=== PATIENT | male | born 1970 | race Caucasian/White ===

== ENCOUNTER → 2017-04-11 | Outpatient (CLI) | payer BC, OTHER ==
[~2017-04-11] MED LIST: COLA100C2; PERC5TAB8
--- NOTE | 2017-04-11 12:13 | REP ---
LEFT FOOT, FOUR VIEWS: HISTORY: Pain. There is no acute fracture or dislocation. The joint spaces are normal in appearance. IMPRESSION: There is no acute fracture or dislocation. Signed by Haroon Cash MD 04/11/2017 12:18 P
== END ==
LOC: M WUC 10:32
PROVIDERS: ATTEND Emergency Medicine
DX: M25.572 Pain in left ankle and joints of left foot (principal)

== ENCOUNTER → 2018-04-04 | Outpatient (CLI) | payer BC, OTHER | LOC: M WUC 14:13 | DX: M54.31 Sciatica, right side (principal); M51.36 Other intervertebral disc degeneration, lumbar region | CPT/HCPCS: 72110 ==

== ENCOUNTER → 2018-09-04 | Outpatient (CLI) | payer BC, OTHER ==
[2018-09-04 17:29] LABS: INR 1.06; PROTHROMBIN TIME 13.9 SECONDS (12.1-14.4)
[2018-09-04 17:30] LABS: PARTIAL THROMBOPLASTIN TIME 34.9 SECONDS (25.4-37.6)
== END ==
LOC: M WUC 15:21
PROVIDERS: ATTEND Physical Medicine & Rehabilitation
DX: Z01.812 Encounter for preprocedural laboratory examination (principal)

== ENCOUNTER → 2018-12-28 | Outpatient (CLI) | payer BC, OTHER ==
[2018-12-28 17:35] LABS: BASO % 0.5 % (0.0-1.0); EOS # 0.1 10^3/uL (0.0-0.50); EOS % 2.1 % (0.0-3.0); HEMATOCRIT 43.8 % (42.0-52.0); HEMOGLOBIN 12.7 g/dl (13.5-17.5); LYMPH # 1.6 10^3/uL (1.5-4.5); LYMPH % 26.2 % (24.0-44.0); MEAN CORPUSCULAR HEMOGLOBIN 24.5 pg (27.0-33.0); MEAN CORPUSCULAR VOLUME 84.4 fl (80.0-96.0); MONO # 0.5 10^3/uL (0.0-0.8); MONO % 7.7 % (0.0-5.0); NEUTROPHILS # 3.9 10^3/uL (1.8-7.7); NEUTROPHILS % 63.3 % (36.0-66.0); PLATELET COUNT, AUTOMATED 156 10^3/uL (150-450); RED BLOOD COUNT 5.19 10^6/uL (4.30-6.10); WHITE BLOOD COUNT 6.1 10^3/uL (4.0-10.0)
[2018-12-28 17:55] LABS: ALBUMIN 3.9 GM/DL (3.2-5.2); ALT/SGPT 24 U/L (12-78); BILIRUBIN,TOTAL 0.5 MG/DL (0.2-1.0); BLOOD UREA NITROGEN 21 MG/DL (7-18); CALCIUM LEVEL 9.2 MG/DL (8.5-10.1); CARBON DIOXIDE LEVEL 30 MEQ/L (21-32); CHLORIDE LEVEL 108 MEQ/L (98-107); CHOLESTEROL LEVEL 177 MG/DL (<200); CHOLESTEROL RISK RATIO 2.809 (<5); CREATININE FOR GFR 1.08 MG/DL (0.70-1.30); GLOMERULAR FILTRATION RATE > 60.0 (>56); GLUCOSE, FASTING 82 MG/DL (70-100); HDL CHOLESTEROL 63 MG/DL (>40); LDL CHOLESTEROL 97 MG/DL (<100); NON-HDL-C 114 MG/DL; POTASSIUM SERUM 4.8 MEQ/L (3.5-5.1); SODIUM LEVEL 143 MEQ/L (136-145); TOTAL PROTEIN 7.2 GM/DL (6.4-8.2); TRIGLYCERIDES LEVEL 85 MG/DL (<150)
== END ==
LOC: M WUC 11:19
PROVIDERS: ATTEND Physician Assistant Medical
DX: E55.9 Vitamin D deficiency, unspecified (principal); I10 Essential (primary) hypertension

== ENCOUNTER 2019-01-13 16:18 | Emergency (ER) | payer BC, OTHER ==
[~2019-01-13] VITALS: Ht 167.6 cm; Wt 142.0 kg
[2019-01-13] MEDS ORDERED: GABA800T4 PO (16:34)
[2019-01-13] MEDS ORDERED: LOSA100T50 PO (16:34)
[2019-01-13] MEDS ORDERED: SKEL800T97 PO (16:34)
[2019-01-13] MEDS ORDERED: LEVOTAB10 PO (16:34)
[2019-01-13] MEDS ORDERED: IBUP80TA PO (16:34)
[2019-01-13] MEDS ORDERED: LIDOCAINE 1% SDV 5 ML VIAL DILUENT ONE (19:30)
[2019-01-13] MEDS ORDERED: cefTRIAXone SOD 1 GM VIAL (J0696) IM ONE (19:30)
[2019-01-13] MEDS ORDERED: AUGMENTIN 875 MG TAB PO ONE (19:30)
--- NOTE | 2019-01-13 19:32 | REPVR ---
EXAM: US Duplex Right Lower Extremity Veins, Limited EXAM DATE/TIME: 01/13/2019 6:12 PM CLINICAL HISTORY: 49 years old, male; Pain; Leg, lower; Right; Prior surgery; Surgery date: 6+ months; Surgery type: Quad repair 2003; Additional info: Lower leg pain, swelling TECHNIQUE: Imaging protocol: Real-time Duplex ultrasound of the Right Lower Extremity with 2-D barron scale, color Doppler flow and spectral waveform analysis with image documentation. Limited exam was focused on the right lower extremity veins. COMPARISON: No relevant prior studies available. FINDINGS: Right deep veins: The common femoral, femoral, proximal profunda femoral and popliteal veins are patent without thrombus. Normal compressibility and/or augmentation response. Flow is visualized within the posterior tibial vein. Evaluation of the posterior tibial vein is limited. Right superficial veins: Saphenofemoral junction is patent without thrombus. Soft tissues: Unremarkable. IMPRESSION: No evidence of deep vein thrombosis from the right common femoral to the popliteal veins. Electronically signed by: Francis Monroe On 01/13/2019 19:31:35 PM
[2019-01-13 19:42] LABS: BASO % 0.1 % (0.0-1.0); EOS # 0.1 10^3/uL (0.0-0.50); EOS % 1.7 % (0.0-3.0); HEMATOCRIT 40.3 % (42.0-52.0); HEMOGLOBIN 11.8 g/dl (13.5-17.5); LYMPH # 1.4 10^3/uL (1.5-4.5); LYMPH % 18.5 % (24.0-44.0); MEAN CORPUSCULAR HEMOGLOBIN 24.4 pg (27.0-33.0); MEAN CORPUSCULAR HGB CONC 29.3 g/dl (32.0-36.5); MEAN CORPUSCULAR VOLUME 83.4 fl (80.0-96.0); MONO # 0.9 10^3/uL (0.0-0.8); MONO % 11.4 % (0.0-5.0); NEUTROPHILS # 5.1 10^3/uL (1.8-7.7); NEUTROPHILS % 67.8 % (36.0-66.0); PLATELET COUNT, AUTOMATED 135 10^3/uL (150-450); RED BLOOD COUNT 4.83 10^6/uL (4.30-6.10); WHITE BLOOD COUNT 7.5 10^3/uL (4.0-10.0)
[2019-01-13 20:17] LABS: ERYTHROCYTE SEDIMENTATION RATE 46 mm/hr (0-20)
[2019-01-13] MEDS ORDERED: AUGM875T28 PO (21:07)
[2019-01-13 21:10] VITALS: BP 142/88
== END 2019-01-13 21:19 | disposition home or self-care (01) ==
LOC: M ED 16:18
DX: L03.115 Cellulitis of right lower limb (principal); R51 Headache; Z98.84 Bariatric surgery status; Z79.899 Other long term (current) drug therapy
CPT/HCPCS: 36415; 80047; 85025; 85652; 86140; 87040; 93971; 96372; 99283; J0696

== ENCOUNTER → 2019-02-01 | Outpatient (CLI) | payer BC, OTHER ==
[~2019-02-01] MED LIST changes: +AUGM875T28 PO; +GABA800T4 PO; +IBUP80TA PO; +LEVOTAB10 PO; +LOSA100T50 PO; +SKEL800T97 PO
--- NOTE | 2019-02-01 15:14 | REP ---
Right lower extremity Duplex Doppler venous ultrasound: Real time compression and duplex Doppler interrogation of the right lower extremity deep venous system is performed. The right common femoral, superficial femoral and popliteal veins are fully compressible with transducer pressure and demonstrate normal spontaneous and phasic flow, without evidence of deep venous thrombosis. Impression: No evidence of deep venous thrombosis of the right lower extremity femoral popliteal venous system. Electronically Signed by Carlos Jeronimo MD 02/01/2019 12:30 P
== END ==
LOC: M RAD 11:54
PROVIDERS: ATTEND Physician Assistant Medical
DX: L03.115 Cellulitis of right lower limb (principal)

== ENCOUNTER → 2019-12-19 | Outpatient (CLI) | payer BC, OTHER ==
[2019-12-19 14:08] LABS: PLATELET COUNT, AUTOMATED 159 10^3/uL (150-450)
[2019-12-19 14:18] LABS: INR 1.08; PROTHROMBIN TIME 13.7 SECONDS (11.8-14.0)
[2019-12-19 14:19] LABS: PARTIAL THROMBOPLASTIN TIME 34.7 SECONDS (25.0-38.4)
[2019-12-19 14:54] LABS: COLLAGEN ADP 100 SECONDS (56-103); COLLAGEN EPINEPHRINE > 268 SECONDS (74-162)
== END ==
LOC: M WUC 11:51
PROVIDERS: ATTEND Physician Assistant
DX: Z01.812 Encounter for preprocedural laboratory examination (principal); M47.26 Other spondylosis with radiculopathy, lumbar region; M48.04 Spinal stenosis, thoracic region

== ENCOUNTER → 2019-12-26 | Outpatient (CLI) | payer BC, OTHER | LOC: M LABSMTC 11:46 | PROVIDERS: ATTEND Physical Medicine & Rehabilitation | DX: Z03.89 Encounter for observation for other suspected diseases and conditions ruled out (principal); Z11.59 Encounter for screening for other viral diseases ==

== ENCOUNTER → 2019-12-30 | Outpatient (CLI) | payer BC, OTHER ==
[2019-12-30 11:56] LABS: COLLAGEN ADP 94 SECONDS (56-103); COLLAGEN EPINEPHRINE > 300 SECONDS (74-162)
== END ==
LOC: M WUC 09:53
PROVIDERS: ATTEND Physician Assistant
DX: M47.26 Other spondylosis with radiculopathy, lumbar region (principal)

== ENCOUNTER → 2020-04-20 | Outpatient (CLI) | payer SELFPAY | LOC: M LABSMTC 13:28 | PROVIDERS: ATTEND Pediatrics | DX: Z20.828 Contact with and (suspected) exposure to other viral communicable diseases (principal) ==

== ENCOUNTER → 2020-07-01 | Outpatient (CLI) | payer BC, OTHER ==
--- NOTE | 2020-07-01 14:44 | REP ---
INDICATION: PAIN COMPARISON: None. TECHNIQUE: AP and lateral views left ankle. FINDINGS: The osseous structures and joint spaces are intact and normal. There is no evidence for acute fracture or dislocation. Surrounding soft tissues are unremarkable. No subcutaneous emphysema or radiodense foreign body. IMPRESSION: Normal age-appropriate left ankle radiographs. <Electronically signed by Erik Diaz > 07/01/20 [id number]
--- NOTE | 2020-07-01 14:44 | REP ---
INDICATION: PAIN COMPARISON: None. TECHNIQUE: AP and lateral views of the left foot. FINDINGS: The osseous structures and joint spaces are intact and normal. There is no evidence for acute fracture or dislocation. Surrounding soft tissues are unremarkable. No subcutaneous emphysema or radiodense foreign body. IMPRESSION: Normal age-appropriate left foot radiographs. <Electronically signed by Erik Diaz > 07/01/20 [id number]
== END ==
LOC: M WUC 13:39
PROVIDERS: ATTEND Physician Assistant Medical
DX: M25.572 Pain in left ankle and joints of left foot (principal)

== ENCOUNTER → 2021-02-20 | Outpatient (CLI) | payer BC, OTHER | LOC: M LABSMTC 09:31 | PROVIDERS: ATTEND Pediatrics | DX: Z20.822 Contact with and (suspected) exposure to COVID-19 (principal) | CPT/HCPCS: C9803; U0003 ==

== ENCOUNTER 2021-02-22 18:12 | Outpatient (CLI) | payer BC, OTHER ==
[~2021-02-22] VITALS: Ht 167.6 cm; Wt 147.6 kg
[~2021-02-22 18:12] MED LIST changes: +ALBUTEROL 90 MCG/ACT 8GM HFA INHALER INH PRN; +ALBUTEROL SULFATE 2.5 MG/0.5 ML INH NEB SOLN INH PRN; +EPINEPHrine INJ 1 MG/ML 1ML AMP IM PRN; +NS 1,000 ML IV SCH; +diphenhydrAMINE 50MG/ML VIAL (J1200) IV PRN; +methylPREDNISolone 125MG 2ML VIAL IV PRN
[2021-02-22 20:00] VITALS: BP 152/70
[2021-02-22] MEDS ORDERED: CASIRIVIMAB/IMDEVIMAB 1,200 MG in NS 250 ML IV ONE (20:00)
[2021-02-22 20:35] VITALS: BP 180/85
[2021-02-22 21:00] VITALS: BP 138/60
[2021-02-22 21:49] VITALS: BP 110/64
== END 2021-02-22 22:10 ==
LOC: M OPCLI4 18:12 → M 4MAIN 18:26 → M OPCLI4 22:10
PROVIDERS: ATTEND Family Medicine
DX: U07.1 COVID-19 (principal)

== ENCOUNTER → 2021-03-26 | Outpatient (CLI) | payer BC, OTHER ==
[~2021-03-26] MED LIST changes: -ALBUTEROL 90 MCG/ACT 8GM HFA INHALER INH PRN; -ALBUTEROL SULFATE 2.5 MG/0.5 ML INH NEB SOLN INH PRN; -EPINEPHrine INJ 1 MG/ML 1ML AMP IM PRN; -NS 1,000 ML IV SCH; -diphenhydrAMINE 50MG/ML VIAL (J1200) IV PRN; -methylPREDNISolone 125MG 2ML VIAL IV PRN
--- NOTE | 2021-03-26 13:23 | REP ---
INDICATION: COUGH, SOB POST COVID. COMPARISON: None. TECHNIQUE: PA and lateral no sign report FINDINGS: The superior mediastinal structures are midline. The cardiac silhouette is unremarkable in size, shape, and position. The diaphragmatic surfaces of the lungs are regular, and the costophrenic angles are clear. The pulmonary medina are clear. The imaged osseous structures are intact. IMPRESSION: There is no acute cardiopulmonary disease. <Electronically signed by Geo Nuñez > 03/26/21 [id number]
== END ==
LOC: M WUC 13:06
PROVIDERS: ATTEND Nurse Practitioner Family
DX: R05.9 Cough, unspecified (principal)

== ENCOUNTER → 2021-05-24 | Outpatient (CLI) | payer BC, OTHER ==
[~2021-05-24] MED LIST changes: +LOSA100T45 PO; -LOSA100T50 PO
== END ==
LOC: M RAD 13:09
PROVIDERS: ATTEND Physical Medicine & Rehabilitation
DX: M47.26 Other spondylosis with radiculopathy, lumbar region (principal); M51.16 Intervertebral disc disorders with radiculopathy, lumbar region; M48.061 Spinal stenosis, lumbar region without neurogenic claudication

== ENCOUNTER → 2021-07-21 | Outpatient (CLI) | payer BC, OTHER | LOC: M RAD 07:02 | PROVIDERS: ATTEND Physician Assistant | DX: M79.672 Pain in left foot (principal); R60.0 Localized edema; M94.8X7 Other specified disorders of cartilage, ankle and foot ==

== ENCOUNTER → 2021-07-21 | Outpatient (CLI) | payer BC, OTHER | LOC: M WUC 08:29 | PROVIDERS: ATTEND Physician Assistant | DX: M79.672 Pain in left foot (principal) ==

== ENCOUNTER → 2021-08-04 | Outpatient (CLI) | payer OTHER, BC ==
[2021-08-04 15:18] LABS: INR 0.95; PROTHROMBIN TIME 13.1 SECONDS (12.7-14.5)
[2021-08-04 15:19] LABS: PARTIAL THROMBOPLASTIN TIME 32.9 SECONDS (25.9-37.0)
[2021-08-04 15:33] LABS: COLLAGEN EPINEPHRINE 194 SECONDS (74-162)
[2021-08-04 16:05] LABS: COLLAGEN ADP 107 SECONDS (56-103)
== END ==
LOC: M WUC 14:11
PROVIDERS: ATTEND Physical Medicine & Rehabilitation
DX: M51.26 Other intervertebral disc displacement, lumbar region (principal)

== ENCOUNTER → 2021-08-11 | Outpatient (CLI) | payer OTHER, BC ==
[2021-08-11 13:19] LABS: PLATELET COUNT, AUTOMATED 143 10^3/uL (150-450)
[2021-08-11 13:30] LABS: COLLAGEN EPINEPHRINE 159 SECONDS (74-162)
== END ==
LOC: M WUC 12:10
PROVIDERS: ATTEND Physical Medicine & Rehabilitation
DX: Z01.812 Encounter for preprocedural laboratory examination (principal)

== ENCOUNTER → 2021-09-07 | Outpatient (CLI) | payer BC, OTHER | LOC: M RAD 10:42 | PROVIDERS: ATTEND Nurse Practitioner Family | DX: M79.672 Pain in left foot (principal) ==

== ENCOUNTER → 2022-03-11 | Outpatient (CLI) | payer OTHER, BC ==
[2022-03-11 09:21] LABS: HEMATOCRIT 48.7 % (42.0-52.0); HEMOGLOBIN 15.3 g/dl (13.5-17.5); MEAN CORPUSCULAR HEMOGLOBIN 27.9 pg (27.0-33.0); MEAN CORPUSCULAR HGB CONC 31.4 g/dl (32.0-36.5); MEAN CORPUSCULAR VOLUME 88.9 fl (80.0-96.0); PLATELET COUNT, AUTOMATED 159 10^3/uL (150-450); RED BLOOD COUNT 5.48 10^6/uL (4.30-6.10); WHITE BLOOD COUNT 6.9 10^3/uL (4.0-10.0)
[2022-03-11 09:46] LABS: ALBUMIN 3.8 GM/DL (3.2-5.2); ALT/SGPT 56 U/L (12-78); BILIRUBIN,TOTAL 0.6 MG/DL (0.2-1.0); BLOOD UREA NITROGEN 17 MG/DL (7-18); CALCIUM LEVEL 9.2 MG/DL (8.5-10.1); CARBON DIOXIDE LEVEL 34 MEQ/L (21-32); CHLORIDE LEVEL 104 MEQ/L (98-107); CREATININE FOR GFR 1.05 MG/DL (0.70-1.30); GLOMERULAR FILTRATION RATE > 60.0 (>56); GLUCOSE, FASTING 105 MG/DL (70-100); POTASSIUM SERUM 4.7 MEQ/L (3.5-5.1); SODIUM LEVEL 141 MEQ/L (136-145); TOTAL PROTEIN 7.2 GM/DL (6.4-8.2)
== END ==
LOC: M EKG 08:33
PROVIDERS: ATTEND Orthopaedic Surgery
DX: G56.03 Carpal tunnel syndrome, bilateral upper limbs (principal); G56.23 Lesion of ulnar nerve, bilateral upper limbs; I15.9 Secondary hypertension, unspecified

== ENCOUNTER → 2022-05-06 | Outpatient (CLI) | payer OTHER, BC ==
[2022-05-06 12:39] LABS: BASO % 0.4 % (0.0-1.0); EOS # 0.2 10^3/uL (0.0-0.5); EOS % 2.1 % (0.0-3.0); HEMATOCRIT 48.7 % (42.0-52.0); HEMOGLOBIN 15.2 g/dl (13.5-17.5); LYMPH # 2.1 10^3/uL (1.5-5.0); LYMPH % 26.8 % (24.0-44.0); MEAN CORPUSCULAR HGB CONC 31.2 g/dl (32.0-36.5); MEAN CORPUSCULAR VOLUME 89.7 fl (80.0-96.0); MONO # 0.6 10^3/uL (0.0-0.8); NEUTROPHILS # 4.8 10^3/uL (1.5-8.5); NEUTROPHILS % 62.4 % (36.0-66.0); PLATELET COUNT, AUTOMATED 171 10^3/uL (150-450); RED BLOOD COUNT 5.43 10^6/uL (4.30-6.10); WHITE BLOOD COUNT 7.7 10^3/uL (4.0-10.0)
[2022-05-06 13:30] LABS: BLOOD UREA NITROGEN 18 MG/DL (7-18); CALCIUM LEVEL 9.2 MG/DL (8.5-10.1); CARBON DIOXIDE LEVEL 30 MEQ/L (21-32); CHLORIDE LEVEL 103 MEQ/L (98-107); GLOMERULAR FILTRATION RATE > 60.0 (>56); GLUCOSE, FASTING 121 MG/DL (70-100); POTASSIUM SERUM 4.3 MEQ/L (3.5-5.1); SODIUM LEVEL 139 MEQ/L (136-145)
== END ==
LOC: M WUC 09:23
PROVIDERS: ATTEND Orthopaedic Surgery
DX: I15.9 Secondary hypertension, unspecified (principal); G56.03 Carpal tunnel syndrome, bilateral upper limbs; G56.23 Lesion of ulnar nerve, bilateral upper limbs

== ENCOUNTER → 2022-08-05 | Outpatient (REF) | payer OTHER ==
[2022-08-05 16:40] LABS: HEMATOCRIT 49.8 % (42.0-52.0); HEMOGLOBIN 15.4 g/dl (13.5-17.5); MEAN CORPUSCULAR HEMOGLOBIN 28.3 pg (27.0-33.0); MEAN CORPUSCULAR HGB CONC 30.9 g/dl (32.0-36.5); MEAN CORPUSCULAR VOLUME 91.5 fl (80.0-96.0); PLATELET COUNT, AUTOMATED 147 10^3/uL (150-450); RED BLOOD COUNT 5.44 10^6/uL (4.30-6.10); WHITE BLOOD COUNT 8.7 10^3/uL (4.0-10.0)
[2022-08-05 17:22] LABS: ALBUMIN 3.8 G/DL (3.2-5.2); ALKALINE PHOSPHATASE 129 U/L (46-116); ALT/SGPT 55 U/L (7.0-40); AST/SGOT 26 U/L (<34); BILIRUBIN,TOTAL 0.8 MG/DL (0.3-1.2); BLOOD UREA NITROGEN 17 MG/DL (9-23); CALCIUM LEVEL 9.1 MG/DL (8.5-10.1); CARBON DIOXIDE LEVEL 31 MMOL/L (20-31); CHLORIDE LEVEL 101 MMOL/L (98-107); CREATININE FOR GFR 1.08 MG/DL (0.70-1.30); GLOMERULAR FILTRATION RATE > 60.0 (>56); GLUCOSE, FASTING 152 MG/DL (60-100); POTASSIUM SERUM 3.9 MMOL/L (3.5-5.1); SODIUM LEVEL 141 MMOL/L (136-145); TOTAL PROTEIN 6.9 G/DL (5.7-8.2)
== END ==
LOC: M LABWUC 16:04 → M LAB REF 16:04
PROVIDERS: ATTEND Orthopaedic Surgery
DX: G56.03 Carpal tunnel syndrome, bilateral upper limbs (principal); G56.23 Lesion of ulnar nerve, bilateral upper limbs; I15.9 Secondary hypertension, unspecified

== ENCOUNTER → 2022-11-29 | Outpatient (CLI) | payer OTHER ==
[~2022-11-29] MED LIST changes: -LOSA100T45 PO; +LOSA100T46 PO
[2022-11-29 09:46] LABS: BASO # 0.1 10^3/uL (0.0-0.2); BASO % 0.7 % (0.0-1.0); EOS # 0.2 10^3/uL (0.0-0.5); HEMATOCRIT 50.4 % (42.0-52.0); HEMOGLOBIN 16.4 g/dl (13.5-17.5); LYMPH # 1.8 10^3/uL (1.5-5.0); LYMPH % 26.7 % (24.0-44.0); MEAN CORPUSCULAR HEMOGLOBIN 29.8 pg (27.0-33.0); MEAN CORPUSCULAR HGB CONC 32.5 g/dl (32.0-36.5); MEAN CORPUSCULAR VOLUME 91.6 fl (80.0-96.0); MONO # 0.7 10^3/uL (0.0-0.8); NEUTROPHILS % 59.3 % (36.0-66.0); PLATELET COUNT, AUTOMATED 135 10^3/uL (150-450); WHITE BLOOD COUNT 6.8 10^3/uL (4.0-10.0)
[2022-11-29 09:52] LABS: ERYTHROCYTE SEDIMENTATION RATE 28 mm/hr (0-20)
[2022-11-29 10:30] LABS: URIC ACID 5.7 MG/DL (3.7-9.2)
[2022-11-29 10:33] LABS: C REACTIVE PROTEIN QUANTITATIV 2.5 MG/DL (<1.0)
[2022-11-29 10:34] LABS: RHEUMATOID FACTOR QUANT 6.5 IU/ML (<14)
[2022-11-30 13:09] LABS: ANTINUCLEAR ANTIBODIES DIRECT Negative (Negative)
== END ==
LOC: M WUC 08:02
PROVIDERS: ATTEND Physician Assistant
DX: M79.672 Pain in left foot (principal)

== ENCOUNTER → 2022-12-07 | Outpatient (CLI) | payer OTHER, SELFPAY | LOC: M RAD 11:46 | PROVIDERS: ATTEND Physician Assistant | DX: M25.475 Effusion, left foot (principal) ==

== ENCOUNTER → 2024-05-07 | Outpatient (CLI) | payer OTHER ==
[~2024-05-07] MED LIST changes: +GABA-1635 PO; -GABA800T4 PO
[2024-05-07 17:44] LABS: BASO % 0.3 % (0.0-1.0); EOS # 0.2 10^3/uL (0.0-0.5); EOS % 1.8 % (0.0-3.0); HEMATOCRIT 56.5 % (42.0-52.0); HEMOGLOBIN 18.5 g/dl (13.5-17.5); LYMPH % 21.8 % (24.0-44.0); MEAN CORPUSCULAR HEMOGLOBIN 31.2 pg (27.0-33.0); MEAN CORPUSCULAR HGB CONC 32.7 g/dl (32.0-36.5); MEAN CORPUSCULAR VOLUME 95.3 fl (80.0-96.0); MONO # 0.7 10^3/uL (0.0-0.8); MONO % 7.3 % (2.0-8.0); NEUTROPHILS # 6.1 10^3/uL (1.5-8.5); NEUTROPHILS % 68.5 % (36.0-66.0); PLATELET COUNT, AUTOMATED 152 10^3/uL (150-450); RED BLOOD COUNT 5.93 10^6/uL (4.30-6.10); WHITE BLOOD COUNT 8.9 10^3/uL (4.0-10.0)
[2024-05-07 17:45] LABS: ALBUMIN 3.9 G/DL (3.2-5.2); ALKALINE PHOSPHATASE 125 U/L (40-129); ALT/SGPT 42 U/L (7.0-40); AST/SGOT 20 U/L (<34); BILIRUBIN,TOTAL 1.1 MG/DL (0.3-1.2); BLOOD UREA NITROGEN 22 MG/DL (9-23); CALCIUM LEVEL 9.8 MG/DL (8.5-10.1); CARBON DIOXIDE LEVEL 35 MMOL/L (20-31); CHLORIDE LEVEL 103 MMOL/L (98-107); CHOLESTEROL LEVEL 208 MG/DL (<200); CHOLESTEROL RISK RATIO 3.38 (<5); CREATININE FOR GFR 1.07 MG/DL (0.70-1.30); GLOMERULAR FILTRATION RATE > 60.0 (>56); GLUCOSE, FASTING 106 MG/DL (60-100); HDL CHOLESTEROL 61.4 MG/DL (>40); LDL CHOLESTEROL 125.8 MG/DL (<100); NON-HDL-C 146.6 MG/DL; POTASSIUM SERUM 4.4 MMOL/L (3.5-5.1); SODIUM LEVEL 142 MMOL/L (136-145); TOTAL PROTEIN 7.7 G/DL (5.7-8.2); TRIGLYCERIDES LEVEL 104 MG/DL (<150)
[2024-05-07 17:47] LABS: THYROID STIMULATING HORMONE 0.669 uIU/ML (0.55-4.78)
[2024-05-07 17:51] LABS: URIC ACID 7.4 MG/DL (3.7-9.2)
[2024-05-07 17:57] LABS: HEMOGLOBIN A1c 5.5 % (4.0-6.0)
== END ==
LOC: M WUC 12:11
PROVIDERS: ATTEND Nurse Practitioner Family
DX: I10 Essential (primary) hypertension (principal); E78.2 Mixed hyperlipidemia; E66.01 Morbid (severe) obesity due to excess calories

== ENCOUNTER → 2024-05-22 | Outpatient (CLI) | payer OTHER ==
[2024-05-22 17:01] LABS: BASO % 0.5 % (0.0-1.0); EOS # 0.2 10^3/uL (0.0-0.5); HEMATOCRIT 54.2 % (42.0-52.0); HEMOGLOBIN 17.8 g/dl (13.5-17.5); LYMPH # 1.7 10^3/uL (1.5-5.0); LYMPH % 21.5 % (24.0-44.0); MEAN CORPUSCULAR HEMOGLOBIN 30.6 pg (27.0-33.0); MEAN CORPUSCULAR HGB CONC 32.8 g/dl (32.0-36.5); MEAN CORPUSCULAR VOLUME 93.1 fl (80.0-96.0); MONO # 0.4 10^3/uL (0.0-0.8); MONO % 5.7 % (2.0-8.0); NEUTROPHILS # 5.4 10^3/uL (1.5-8.5); PLATELET COUNT, AUTOMATED 158 10^3/uL (150-450); RED BLOOD COUNT 5.82 10^6/uL (4.30-6.10); WHITE BLOOD COUNT 7.7 10^3/uL (4.0-10.0)
[2024-05-22 17:02] LABS: IRON (FE) 93 UG/DL (65-175); PERCENT SATURATION 25.7 % (19.7-50.0); TOTAL IRON BINDING CAPACITY 362 UG/DL (250-425)
[2024-05-22 17:03] LABS: ALBUMIN 3.9 G/DL (3.2-5.2); ALKALINE PHOSPHATASE 130 U/L (40-129); ALT/SGPT 39 U/L (7.0-40); AST/SGOT 14 U/L (<34); BILIRUBIN,TOTAL 0.9 MG/DL (0.3-1.2); BLOOD UREA NITROGEN 17 MG/DL (9-23); CALCIUM LEVEL 9.8 MG/DL (8.5-10.1); CARBON DIOXIDE LEVEL 31 MMOL/L (20-31); CHLORIDE LEVEL 102 MMOL/L (98-107); CREATININE FOR GFR 0.99 MG/DL (0.70-1.30); GLOMERULAR FILTRATION RATE > 60.0 (>56); GLUCOSE, FASTING 156 MG/DL (60-100); POTASSIUM SERUM 3.9 MMOL/L (3.5-5.1); SODIUM LEVEL 140 MMOL/L (136-145); TOTAL PROTEIN 7.5 G/DL (5.7-8.2)
[2024-05-22 17:05] LABS: FERRITIN 28.9 NG/ML (10.5-307.3)
[2024-05-22 17:38] LABS: AMORPHOUS SEDIMENT SMALL (NEGATIVE); APPEARANCE, URINE TURBID (CLEAR); BACTERIA, URINE AUTO NEGATIVE (NEGATIVE); BILIRUBIN, URINE AUTO NEGATIVE (NEGATIVE); BLOOD, URINE BLOOD NEGATIVE (NEGATIVE); COLOR, URINE AMBER (YELLOW); GLUCOSE, URINE (UA) AUTO NEGATIVE (NEGATIVE); KETONE, URINE AUTO NEGATIVE (NEGATIVE); LEUKOCYTE ESTERASE, URINE AUTO NEGATIVE (NEGATIVE); MUCUS, URINE SMALL (NEGATIVE); NITRITE, URINE AUTO NEGATIVE (NEGATIVE); PROTEIN, URINE AUTO 1+ mg/dL (NEGATIVE); RBC, URINE AUTO 1 /HPF (0-3); SPECIFIC GRAVITY URINE AUTO 1.024 (1.002-1.035); SQUAMOUS EPITHELIAL CELL UR AU 0 /HPF (0-6); WBC, URINE AUTO 0 /HPF (0-3)
[2024-05-22 17:44] LABS: ERYTHROCYTE SEDIMENTATION RATE 28 mm/hr (0-20)
== END ==
LOC: M WUC 10:40
PROVIDERS: ATTEND Nurse Practitioner Family
DX: D45 Polycythemia vera (principal)

== ENCOUNTER 2024-08-12 08:07 | Outpatient (RCR) | payer OTHER | END 2024-08-23 | LOC: M PT 08:07 | PROVIDERS: ATTEND Physician Assistant | DX: I89.0 Lymphedema, not elsewhere classified (principal) ==

== ENCOUNTER → 2024-08-26 | Outpatient (CLI) | payer OTHER ==
[2024-08-26 11:34] LABS: BASO % 0.5 % (0.0-1.0); EOS # 0.1 10^3/uL (0.0-0.5); EOS % 1.6 % (0.0-3.0); HEMATOCRIT 55.2 % (42.0-52.0); LYMPH # 1.5 10^3/uL (1.5-5.0); LYMPH % 18.6 % (24.0-44.0); MEAN CORPUSCULAR HEMOGLOBIN 30.2 pg (27.0-33.0); MEAN CORPUSCULAR HGB CONC 32.6 g/dl (32.0-36.5); MEAN CORPUSCULAR VOLUME 92.5 fl (80.0-96.0); MONO # 0.5 10^3/uL (0.0-0.8); MONO % 6.4 % (2.0-8.0); NEUTROPHILS # 5.9 10^3/uL (1.5-8.5); NEUTROPHILS % 72.5 % (36.0-66.0); PLATELET COUNT, AUTOMATED 144 10^3/uL (150-450); RED BLOOD COUNT 5.97 10^6/uL (4.30-6.10); WHITE BLOOD COUNT 8.1 10^3/uL (4.0-10.0)
[2024-08-26 11:41] LABS: ERYTHROCYTE SEDIMENTATION RATE 18 mm/hr (0-20)
[2024-08-26 12:03] LABS: LDH LACTATE DEHYDROGENASE 179 U/L (120-246)
[2024-08-26 12:04] LABS: C REACTIVE PROTEIN QUANTITATIV 1.47 MG/DL (<1.0)
[2024-08-26 12:05] LABS: ALBUMIN 3.8 G/DL (3.2-5.2); ALKALINE PHOSPHATASE 123 U/L (40-129); ALT/SGPT 34 U/L (7.0-40); AST/SGOT 15 U/L (<34); BILIRUBIN,TOTAL 0.8 MG/DL (0.3-1.2); BLOOD UREA NITROGEN 16 MG/DL (9-23); CALCIUM LEVEL 9.2 MG/DL (8.5-10.1); CARBON DIOXIDE LEVEL 34 MMOL/L (20-31); CHLORIDE LEVEL 102 MMOL/L (98-107); CREATININE FOR GFR 1.04 MG/DL (0.70-1.30); GLOMERULAR FILTRATION RATE > 60.0 (>56); GLUCOSE, FASTING 103 MG/DL (60-100); POTASSIUM SERUM 4.6 MMOL/L (3.5-5.1); SODIUM LEVEL 142 MMOL/L (136-145); TOTAL PROTEIN 7.2 G/DL (5.7-8.2)
[2024-08-26 12:07] LABS: FREE T4 1.12 NG/DL (0.89-1.76); THYROID STIMULATING HORMONE 1.158 uIU/ML (0.55-4.78)
[2024-08-28 13:47] LABS: EBV AB TO NUCLEAR ANTIGEN > 600.00 U/mL (<18.00); EBV VIRAL CAPSID AG IGG > 750.00 U/mL (<18.00); EBV VIRAL CAPSID AG IGM < 36.00 U/mL (<36.00)
[2024-08-29 19:17] LABS: LYME TOTAL ANTIBODY CIA <= 0.90 Index (<=0.90)
== END ==
LOC: M LAB 10:47
PROVIDERS: ATTEND Nurse Practitioner Family
DX: R59.0 Localized enlarged lymph nodes (principal); D69.6 Thrombocytopenia, unspecified

== ENCOUNTER 2024-09-20 12:00 | Outpatient (RCR) | payer OTHER | END 2024-09-23 | LOC: M PT 12:00 | PROVIDERS: ATTEND Physician Assistant | DX: I89.0 Lymphedema, not elsewhere classified (principal) ==

== ENCOUNTER 2024-09-30 10:35 | Outpatient (RCR) | payer OTHER ==
[2024-10-10] MEDS ORDERED: AMLO1TAB25 PO (17:11)
[2024-10-10] MEDS ORDERED: FURO20TA2 PO (17:11)
[2024-10-10] MEDS ORDERED: CELE1CAP99 PO (17:11)
[2024-10-10] MEDS ORDERED: LOSA100T46 PO (17:11)
[2024-10-10] MEDS ORDERED: KETO2CR TOP (17:24)
[2024-10-10] MEDS ORDERED: META-10 PO (17:24)
[2024-10-10] MEDS ORDERED: ALB2.5NEB INH (17:24)
[2024-10-10] MEDS ORDERED: THERTAB52 PO (17:24)
[2024-10-10] MEDS ORDERED: AZEL1SPR3 NARES (17:24)
[2024-10-10] MEDS ORDERED: FLON1SPR NARES (17:24)
[2024-10-14] MEDS ORDERED: LOSA-528 PO (11:40)
[2024-10-14] MEDS ORDERED: POTA-149 PO (11:40)
[2024-10-14] MEDS ORDERED: CEFD300CAP PO (11:40)
[2024-10-14] MEDS ORDERED: TORS20TA2 PO (11:40)
[2024-10-14] MEDS ORDERED: ALB2.5NEB INH (15:07)
== END 2024-10-23 ==
LOC: M PT 10:35
PROVIDERS: ATTEND Physician Assistant
DX: I89.0 Lymphedema, not elsewhere classified (principal)

== ENCOUNTER 2024-10-10 15:37 | Inpatient (IN) | payer OTHER ==
[~2024-10-10] VITALS: Ht 165.1 cm; Wt 161.0 kg
[2024-10-10 16:23] LABS: VENOUS BASE EXCESS 2.8 (-2.0-2.0); VENOUS HCO3 29.9 MMOL/L (23.0-27.0); VENOUS O2 SATURATION 76.9 % (60.0-80.0); VENOUS PARTIAL PRESSURE CO2 54.3 mmHg (38.0-50.0); VENOUS PARTIAL PRESSURE O2 42.9 mmHg (30.0-50.0); VENOUS PH 7.359 UNITS (7.330-7.430); VENOUS STANDARD HCO3 26.2 MMOL/L; VENOUS TOTAL CO2 31.6 MMOL/L (24.0-28.0)
[2024-10-10 16:37] LABS: BASO # 0.1 10^3/uL (0.0-0.2); BASO % 0.4 % (0.0-1.0); EOS # 0.1 10^3/uL (0.0-0.5); HEMATOCRIT 53.4 % (42.0-52.0); HEMOGLOBIN 17.5 g/dl (13.5-17.5); LYMPH # 2.2 10^3/uL (1.5-5.0); LYMPH % 17.4 % (24.0-44.0); MEAN CORPUSCULAR HEMOGLOBIN 30.6 pg (27.0-33.0); MEAN CORPUSCULAR HGB CONC 32.8 g/dl (32.0-36.5); MEAN CORPUSCULAR VOLUME 93.5 fl (80.0-96.0); MONO % 7.5 % (2.0-8.0); NEUTROPHILS # 9.3 10^3/uL (1.5-8.5); PLATELET COUNT, AUTOMATED 164 10^3/uL (150-450); RED BLOOD COUNT 5.71 10^6/uL (4.30-6.10); WHITE BLOOD COUNT 12.7 10^3/uL (4.0-10.0)
[2024-10-10] MEDS: IPRATROPIUM 0.5MG/ALBUTEROL 2.5MG INH SOL UD 3ML NEB ONE (16:41)
[2024-10-10 16:56] LABS: INR 1.09; PARTIAL THROMBOPLASTIN TIME 32.1 SECONDS (24.8-34.2); PROTHROMBIN TIME 14.4 SECONDS (12.5-14.5)
[2024-10-10 16:57] LABS: CPK CREATINE PHOSPHOKINASE 56 U/L (46-171)
[2024-10-10 16:58] LABS: ALBUMIN 3.3 G/DL (3.2-5.2); ALKALINE PHOSPHATASE 110 U/L (40-129); ALT/SGPT 31 U/L (7.0-40); AST/SGOT 15 U/L (<34); BILIRUBIN,DIRECT 0.3 MG/DL (<0.4); BILIRUBIN,TOTAL 0.8 MG/DL (0.3-1.2); BLOOD UREA NITROGEN 28 MG/DL (9-23); CALCIUM LEVEL 9.1 MG/DL (8.5-10.1); CARBON DIOXIDE LEVEL 30 MMOL/L (20-31); CHLORIDE LEVEL 103 MMOL/L (98-107); CK-MB VALUE MASS < 1.0 NG/ML (<3.6); CREATININE FOR GFR 1.13 MG/DL (0.70-1.30); GLOMERULAR FILTRATION RATE 76.3 (>56); GLUCOSE, FASTING 114 MG/DL (60-100); MB/CK RELATIVE INDEX 1.78 (< OR =4); POTASSIUM SERUM 3.4 MMOL/L (3.5-5.1); SODIUM LEVEL 142 MMOL/L (136-145); TOTAL PROTEIN 7.3 G/DL (5.7-8.2)
[2024-10-10 17:00] LABS: FREE T4 1.18 NG/DL (0.89-1.76); THYROID STIMULATING HORMONE 2.319 uIU/ML (0.55-4.78)
[2024-10-10] MEDS ORDERED: CELE1CAP99 PO (17:11)
[2024-10-10] MEDS ORDERED: FURO20TA2 PO (17:11)
[2024-10-10] MEDS ORDERED: LOSA100T46 PO (17:11)
[2024-10-10] MEDS ORDERED: AMLO1TAB25 PO (17:11)
[2024-10-10] MEDS ORDERED: META-10 PO (17:24)
[2024-10-10] MEDS ORDERED: KETO2CR TOP (17:24)
[2024-10-10] MEDS ORDERED: FLON1SPR NARES (17:24)
[2024-10-10] MEDS ORDERED: ALB2.5NEB INH (17:24)
[2024-10-10] MEDS ORDERED: THERTAB52 PO (17:24)
[2024-10-10] MEDS ORDERED: AZEL1SPR3 NARES (17:24)
[2024-10-10] MEDS ORDERED: HOME MED LIST COMPLETE! XX SCH (17:25)
[2024-10-10] MEDS ORDERED: ISOVUE-370 76% 100ML VIAL As Ordered ONE (17:26)
[2024-10-10] MEDS: POTASSIUM CHLORIDE 10MEQ SR TABLET PO ONE (17:43)
[2024-10-10 17:58] LABS: CK-MB VALUE MASS < 1.0 NG/ML (<3.6)
[2024-10-10 18:00] LABS: CPK CREATINE PHOSPHOKINASE 51 U/L (46-171); MB/CK RELATIVE INDEX 1.96 (< OR =4)
[2024-10-10] MEDS: ASPIRIN 325 MG TAB PO ONE (19:25)
[2024-10-10] MEDS: cefTRIAXone SOD 1 GM in DEXTROSE 5% (D5W) ADV/MINI-BAG 50 ML IV ONE (19:36)
[2024-10-10] MEDS: AZITHROMYCIN 250MG TABLET PO ONE (19:36)
[2024-10-10] MEDS ORDERED: METAXALONE 800 MG TABLET PO PRN (20:50)
[2024-10-10] MEDS ORDERED: KETOCONAZOLE 2% CREAM TOP PRN (20:50)
[2024-10-10] MEDS ORDERED: MOM 30ML SUSPENSION UDC PO PRN (20:50)
[2024-10-10] MEDS ORDERED: FLUTICASONE PROP 0.05% NASAL SPRAY 16 GM (FLONASE) NARES PRN (20:50)
[2024-10-10] MEDS ORDERED: MAALOX 30 ML SUSP *UDC PO PRN (20:50)
[2024-10-10] MEDS: FUROSEMIDE 40MG/4ML VIAL IV ONE (20:50)
[2024-10-10 22:00] VITALS: O2SAT 94
[2024-10-10] MEDS: DOCUSATE SODIUM 100MG CAPSULE PO SCH (22:15)
[2024-10-10 22:16] VITALS: O2SAT 94
[2024-10-10] MEDS: CelecoXIB (CeleBREX) 100 MG CAP PO SCH (22:17)
[2024-10-10] MEDS: LOSARTAN 50MG TABLET PO SCH (22:17)
[2024-10-10] MEDS: GABAPENTIN 400MG CAP PO SCH (22:17)
[2024-10-10 22:40] VITALS: BP 150/86; TEMP 96.8; O2SAT 92
[2024-10-10 23:00] VITALS: O2SAT 84
[2024-10-10] MEDS: ENOXAPARIN 150MG/ML SYRINGE SC SCH (23:43)
[2024-10-11] VITALS (50 sets, daily range): BP systolic 115–145; BP diastolic 56–77; TEMP 96.7–98; O2SAT 72–98
[2024-10-11] MEDS: IPRATROPIUM 0.5MG/ALBUTEROL 2.5MG INH SOL UD 3ML INH SCH (02:30)
[2024-10-11 05:28] LABS: ALBUMIN 2.9 G/DL (3.2-5.2); BILIRUBIN,TOTAL 0.7 MG/DL (0.3-1.2); CALCIUM LEVEL 8.2 MG/DL (8.5-10.1); CREATININE FOR GFR 1.04 MG/DL (0.70-1.30); GLOMERULAR FILTRATION RATE 84.3 (>56); MAGNESIUM LEVEL 2.1 MG/DL (1.8-2.4); POTASSIUM SERUM 3.7 MMOL/L (3.5-5.1); PROCALCITONIN 0.4 ng/ml; TOTAL PROTEIN 6.2 G/DL (5.7-8.2)
[2024-10-11] MEDS ORDERED: ENOXAPARIN 40MG/0.4ML SYRINGE (J1650 PER 10MG) SC SCH (09:00)
[2024-10-11 10:20] LABS: DRVV SCREEN 52.2 SECONDS
[2024-10-11 10:22] LABS: PTT LUPUS TYPE ANTICOAG SCREEN 1.37 (0-1.20)
[2024-10-11 10:30] LABS: DRVV CONFIRM 38.3 SECONDS; LUPUS CONFIRM RATIO 1.03
[2024-10-11 10:36] LABS: NORMALIZED RATIO 1.33 (0.00-1.20)
[2024-10-11] MEDS: FUROSEMIDE 100MG/10ML VIAL IV ONE (11:57)
[2024-10-11] MEDS: ACETAMINOPHEN 325 MG TAB PO PRN (11:58)
[2024-10-11] MEDS: cefTRIAXone SOD 1 GM in DEXTROSE 5% (D5W) ADV/MINI-BAG 50 ML IV SCH (20:10)
[2024-10-11] MEDS: AZITHROMYCIN 250MG TABLET PO SCH (20:12)
[2024-10-12] VITALS (29 sets, daily range): BP systolic 121–130; BP diastolic 57–80; TEMP 97.8–98.2; O2SAT 87–98
[2024-10-12 05:45] LABS: VENOUS HCO3 30.8 MMOL/L (23.0-27.0); VENOUS O2 SATURATION 78.2 % (60.0-80.0); VENOUS PARTIAL PRESSURE CO2 72.4 mmHg (38.0-50.0); VENOUS PARTIAL PRESSURE O2 48.3 mmHg (30.0-50.0); VENOUS PH 7.246 UNITS (7.330-7.430); VENOUS STANDARD HCO3 24.8 MMOL/L
[2024-10-12 06:12] LABS: BASO % 0.4 % (0.0-1.0); EOS # 0.2 10^3/uL (0.0-0.5); EOS % 2.3 % (0.0-3.0); HEMATOCRIT 48.1 % (42.0-52.0); LYMPH # 1.6 10^3/uL (1.5-5.0); LYMPH % 19.7 % (24.0-44.0); MEAN CORPUSCULAR HEMOGLOBIN 30.3 pg (27.0-33.0); MEAN CORPUSCULAR HGB CONC 31.4 g/dl (32.0-36.5); MEAN CORPUSCULAR VOLUME 96.4 fl (80.0-96.0); MONO # 0.6 10^3/uL (0.0-0.8); MONO % 6.8 % (2.0-8.0); NEUTROPHILS # 5.8 10^3/uL (1.5-8.5); NEUTROPHILS % 70.4 % (36.0-66.0); PLATELET COUNT, AUTOMATED 174 10^3/uL (150-450); RED BLOOD COUNT 4.99 10^6/uL (4.30-6.10); WHITE BLOOD COUNT 8.2 10^3/uL (4.0-10.0)
[2024-10-12 06:13] LABS: HEMOGLOBIN 15.1 g/dl (13.5-17.5)
[2024-10-12 06:19] LABS: CALCIUM LEVEL 8.2 MG/DL (8.5-10.1); CREATININE FOR GFR 1.07 MG/DL (0.70-1.30); GLOMERULAR FILTRATION RATE 81.4 (>56); POTASSIUM SERUM 4.1 MMOL/L (3.5-5.1)
[2024-10-12] MEDS: guaiFENesin SYRUP 200MG 10ML UDC PO PRN (09:13)
[2024-10-12] MEDS: FUROSEMIDE 100MG/10ML VIAL IV SCH ×2 (09:14→15:44)
[2024-10-12] MEDS: ENOXAPARIN 40MG/0.4ML SYRINGE (J1650 PER 10MG) SC SCH (09:15)
[2024-10-12] MEDS: LOSARTAN 50MG TABLET PO SCH (20:15)
[2024-10-13] VITALS (17 sets, daily range): BP systolic 115–132; BP diastolic 59–68; TEMP 96.8–98.6; O2SAT 84–98
[2024-10-13 06:03] LABS: BASO % 0.5 % (0.0-1.0); EOS # 0.3 10^3/uL (0.0-0.5); EOS % 3.4 % (0.0-3.0); HEMATOCRIT 49.4 % (42.0-52.0); HEMOGLOBIN 15.5 g/dl (13.5-17.5); LYMPH # 1.7 10^3/uL (1.5-5.0); LYMPH % 21.1 % (24.0-44.0); MEAN CORPUSCULAR HEMOGLOBIN 29.9 pg (27.0-33.0); MEAN CORPUSCULAR HGB CONC 31.4 g/dl (32.0-36.5); MEAN CORPUSCULAR VOLUME 95.2 fl (80.0-96.0); MONO # 0.7 10^3/uL (0.0-0.8); MONO % 8.4 % (2.0-8.0); NEUTROPHILS # 5.2 10^3/uL (1.5-8.5); NEUTROPHILS % 66.1 % (36.0-66.0); PLATELET COUNT, AUTOMATED 178 10^3/uL (150-450); RED BLOOD COUNT 5.19 10^6/uL (4.30-6.10); WHITE BLOOD COUNT 7.9 10^3/uL (4.0-10.0)
[2024-10-13 06:23] LABS: CALCIUM LEVEL 8.8 MG/DL (8.5-10.1); CREATININE FOR GFR 1.1 MG/DL (0.70-1.30); GLOMERULAR FILTRATION RATE 78.8 (>56); POTASSIUM SERUM 4.2 MMOL/L (3.5-5.1)
[2024-10-13] MEDS: SODIUM CHLORIDE NASAL 0.65% SPRAY BTL (OCEAN) PRN (08:33)
[2024-10-14] VITALS (12 sets, daily range): BP systolic 128–139; BP diastolic 63–82; TEMP 96.9–97.8; O2SAT 84–98
[2024-10-14 05:15] LABS: VENOUS BASE EXCESS 4.1 (-2.0-2.0); VENOUS HCO3 34.8 MMOL/L (23.0-27.0); VENOUS O2 SATURATION 45.7 % (60.0-80.0); VENOUS PARTIAL PRESSURE CO2 78.7 mmHg (38.0-50.0); VENOUS PARTIAL PRESSURE O2 27.4 mmHg (30.0-50.0); VENOUS PH 7.263 UNITS (7.330-7.430); VENOUS STANDARD HCO3 26.4 MMOL/L; VENOUS TOTAL CO2 37.2 MMOL/L (24.0-28.0)
[2024-10-14 05:21] LABS: BASO % 0.5 % (0.0-1.0); EOS # 0.3 10^3/uL (0.0-0.5); HEMATOCRIT 53.7 % (42.0-52.0); HEMOGLOBIN 17.2 g/dl (13.5-17.5); LYMPH # 1.7 10^3/uL (1.5-5.0); LYMPH % 19.6 % (24.0-44.0); MEAN CORPUSCULAR VOLUME 93.7 fl (80.0-96.0); MONO # 0.6 10^3/uL (0.0-0.8); MONO % 6.6 % (2.0-8.0); NEUTROPHILS % 69.7 % (36.0-66.0); PLATELET COUNT, AUTOMATED 197 10^3/uL (150-450); RED BLOOD COUNT 5.73 10^6/uL (4.30-6.10); WHITE BLOOD COUNT 8.6 10^3/uL (4.0-10.0)
[2024-10-14 05:45] LABS: CREATININE FOR GFR 1.14 MG/DL (0.70-1.30); GLOMERULAR FILTRATION RATE 75.5 (>56)
[2024-10-14] MEDS: CEFDINIR 300 MG CAP (OMNICEF) PO SCH (08:37)
[2024-10-14] MEDS ORDERED: CEFD300CAP PO (11:40)
[2024-10-14] MEDS ORDERED: POTA-149 PO (11:40)
[2024-10-14] MEDS ORDERED: LOSA-528 PO (11:40)
[2024-10-14] MEDS ORDERED: TORS20TA2 PO (11:40)
[2024-10-14] MEDS ORDERED: ALB2.5NEB INH (15:07)
[2024-10-15 15:32] LABS: URINE STREP PNEUMONIAE ANTIGEN NOT DETECTED (NOT DETECT)
[2024-10-16 00:18] LABS: PROTEIN C FUNCTIONAL ACTIVITY 98 % normal (70-180)
[2024-10-16 00:27] LABS: PROTEIN S FUNCTIONAL ACTIVITY 94 % normal (70-150)
[2024-10-16 02:22] LABS: ANTI THROMBIN 3 ANTIGEN IMMUNO 96 % normal (80-120); ANTI THROMBIN 3 FUNCT ACTIVITY 93 % normal (80-135)
== END 2024-10-14 16:11 | disposition home or self-care (01) | DRG 133 ==
LOC: M ED 15:37 → M ED INP 20:49 → M PCU 22:40
PROVIDERS: ADMIT Student in an Organized Health Care Education/Training Program; ATTEND Student in an Organized Health Care Education/Training Program
PROC: B246ZZZ Ultrasonography of Right and Left Heart (ICD-10-PCS; principal; 2024-10-11)
DX: J96.01 Acute respiratory failure with hypoxia (principal); I50.33 Acute on chronic diastolic (congestive) heart failure; J18.9 Pneumonia, unspecified organism; I27.20 Pulmonary hypertension, unspecified; Z68.44 Body mass index [BMI] 60.0-69.9, adult; E66.2 Morbid (severe) obesity with alveolar hypoventilation; I11.0 Hypertensive heart disease with heart failure; F17.200 Nicotine dependence, unspecified, uncomplicated; I89.0 Lymphedema, not elsewhere classified; Z98.84 Bariatric surgery status; Z79.899 Other long term (current) drug therapy; E78.5 Hyperlipidemia, unspecified

== ENCOUNTER 2024-12-30 10:39 | Outpatient (RCR) | payer OTHER ==
[~2024-12-30 10:39] MED LIST changes: +ALB2.5NEB INH; +AMLO1TAB25 PO; +AZEL1SPR3 NARES; +CEFD300CAP PO; +CELE1CAP99 PO; +FLON1SPR NARES; +FURO20TA2 PO; +KETO2CR TOP; +LOSA-528 PO; +META-10 PO; +POTA-149 PO; +THERTAB52 PO; +TORS20TA2 PO
== END 2025-01-23 ==
LOC: M PT 10:39
PROVIDERS: ATTEND Physician Assistant
DX: I89.0 Lymphedema, not elsewhere classified (principal)

== ENCOUNTER → 2025-03-12 | Outpatient (CLI) | payer OTHER | LOC: M SLEEP 20:00 | PROVIDERS: ATTEND Physician Assistant | DX: G47.33 Obstructive sleep apnea (adult) (pediatric) (principal) ==

== ENCOUNTER → 2025-04-02 | Outpatient (CLI) | payer OTHER | END | disposition home or self-care (01) | LOC: M RAD 12:29 | PROVIDERS: ATTEND Orthopaedic Surgery | DX: Z53.9 Procedure and treatment not carried out, unspecified reason (principal) ==

== ENCOUNTER 2025-04-04 09:50 | Outpatient (RCR) | payer OTHER | END 2025-04-25 | LOC: M PT 09:50 | PROVIDERS: ATTEND Physician Assistant | DX: I89.0 Lymphedema, not elsewhere classified (principal) ==